=== PATIENT | male | born 1995 | race Caucasian/White ===

== ENCOUNTER 2017-08-21 13:39 | Emergency (ER) | payer MEDICAID ==
[2017-08-21 13:51] VITALS: BP 146/97
--- NOTE | 2017-08-21 15:19 | XRAY Preliminary Report ---
Exam: XR Chest 2 View PA/LAT IMPRESSION: No acute disease. [facility] SITE ID: [id number]
--- NOTE | 2017-08-21 15:22 | XRAY Report ---
EXAM: CHEST RADIOGRAPHY EXAM DATE: 08/21/2017 03:02 PM. CLINICAL HISTORY: Cough. COMPARISON: None. TECHNIQUE: 2 views. FINDINGS: Lungs/Pleura: Clear. No effusion or pneumothorax. Mediastinum: Heart and mediastinal contours are unremarkable. Upper lobe vessels not distended. Other: Old left clavicle fracture. IMPRESSION: No acute disease. [facility] Referring Provider Line: [phone] SITE ID: [id number]
[2017-08-21] MEDS ORDERED: IPRATROPIUM/ALBUTEROL 3 ML NEB INH STA (15:26)
--- NOTE | 2017-08-21 15:28 | ED Physician Documentation ---
PD HPI URI - Stated complaint Stated Complaint: COUGH, WHEEZING - Chief complaint Chief Complaint: Resp - History obtained from History obtained from: Patient - History of Present Illness Timing - onset: Other (21-year-old with 3 days of productive cough, shortness of breath, runny nose, but no sore throat. No fevers, sick contacts, or recent travel. He does smoke cigarettes. No history of asthma or other health problems.) Review of Systems Constitutional: denies: Fever, Chills Ears: denies: Loss of hearing, Drainage/discharge Nose: reports: Rhinorrhea / runny nose, Congestion Throat: denies: Sore throat Cardiac: denies: Chest pain / pressure Respiratory: reports: Dyspnea, Cough PD PAST MEDICAL HISTORY - Past Medical History Past Medical History: Yes GI: Hepatitis Other Past Medical History: Hep C - Past Surgical History Past Surgical History: No - Present Medications Home Medications: Ambulatory Orders Medication Instructions Recorded Confirmed Albuterol Sulfate [Proventil Hfa 1 - 2 puffs IH Q4H PRN #1 08/21/17 Inhaler] hfa.aer.ad guaiFENesin/CODEINE [Robitussin AC] 5 - 10 ml PO Q6H PRN #120 ml 08/21/17 predniSONE [Deltasone] 60 mg PO DAILY 5 Days 08/21/17 - Allergies Allergies/Adverse Reactions: Allergies Allergy/AdvReac Type Severity Reaction Status Date / Time amoxicillin Allergy Edema Verified 08/21/17 13:50 - Social History Does the pt smoke?: Yes Smoking Status: Current every day smoker Does the pt drink ETOH?: No Does the pt have substance abuse?: No - Immunizations Immunizations are current?: No - POLST Patient has POLST: No PD ED PE NORMAL - Vitals Vital signs reviewed: Yes - General General: Alert and oriented X 3 (Frequent coughing) - HEENT HEENT: Ears normal, Pharynx benign - Neck Neck: Supple, no meningeal sign, No bony TTP - Cardiac Cardiac: RRR, No murmur - Respiratory Respiratory: Other (Moderately tight wheezes throughout without rhonchi or focal findings, nonlabored.) - Abdomen Abdomen: Soft, Non tender - Derm Derm: No rash - Neuro Neuro: Alert and oriented X 3, Normal speech - Psych Psych: Normal mood, Normal affect Results - Vitals Vitals: Vital Signs - 24 hr 08/21/17 13:49 Temperature 36.4 C L Heart Rate 92 Respiratory 18 Rate Blood Pressure 146/97 H O2 Saturation 97 Oxygen O2 Source Room air - Rads (name of study) 2 view chest Radiology: EMP read contemporaneously (normal) Departure - Departure Disposition: 01 Home, Self Care Clinical Impression: Acute viral bronchiolitis Condition: Good Record reviewed to determine appropriate education?: Yes Instructions: ED Upper Resp Infec No Abx Tx Prescriptions: predniSONE [Deltasone] 60 mg PO DAILY 5 Days Albuterol Sulfate [Proventil Hfa Inhaler] 1 - 2 puffs IH Q4H PRN #1 hfa.aer.ad PRN Reason: Cough guaiFENesin/CODEINE [Robitussin AC] 5 - 10 ml PO Q6H PRN #120 ml PRN Reason: Cough Comments: Call your doctor to arrange a follow-up appointment, make the next available appointment. In the interim, return anytime if worse or if new symptoms develop. Your blood pressure was elevated today on check into the emergency department. This does not mean that you have hypertension, it is a common phenomenon to come to the emergency department and have elevated blood pressure. I recommend that she see your primary care physician within the week to have it rechecked when you are feeling better.
[2017-08-21] MEDS ORDERED: IPRATROPIUM/ALBUTEROL 3 ML NEB INH ONE (15:38)
== END 2017-08-21 15:47 | disposition home or self-care (01) ==
LOC: ED 13:39
DX: J21.9 Acute bronchiolitis, unspecified (principal); B34.9 Viral infection, unspecified; R03.0 Elevated blood-pressure reading, without diagnosis of hypertension; K75.9 Inflammatory liver disease, unspecified; F17.200 Nicotine dependence, unspecified, uncomplicated
CPT/HCPCS: 71020; 94640; 99283; J7620